=== PATIENT | female | born 1945 | race Caucasian/White ===

== ENCOUNTER 2017-04-06 00:51 | Emergency (ER) | payer MEDICARE, MEDICAID ==
[~2017-04-06] VITALS: Ht 170.2 cm; Wt 73.8 kg
[2017-04-06 00:52] VITALS: BP 158/99
[2017-04-06] MEDS ORDERED: DEXAMETHASONE 4 MG TABLET ONE (01:27)
[2017-04-06] MEDS ORDERED: DEXAMETHASONE 4 MG TABLET PO ONE (01:30)
== END 2017-04-06 01:45 | disposition home or self-care (01) ==
LOC: ED 01:40
DX: J04.0 Acute laryngitis (principal); Z87.891 Personal history of nicotine dependence; Z88.0 Allergy status to penicillin; Z90.49 Acquired absence of other specified parts of digestive tract
CPT/HCPCS: 99282

== ENCOUNTER 2017-04-08 09:56 | Emergency (ER) | payer MEDICARE, MEDICAID ==
[~2017-04-08] VITALS: Ht 167.6 cm; Wt 73.8 kg
[2017-04-08] MEDS ORDERED: MECLIZINE CHEWABLE 25 MG TAB PO ONE (10:30)
[2017-04-08] MEDS ORDERED: MECLIZINE CHEWABLE 25 MG TAB ONE (10:32)
[2017-04-08 12:22] VITALS: BP 117/82
== END 2017-04-08 12:23 | disposition home or self-care (01) ==
LOC: ED 10:09
DX: R42 Dizziness and giddiness (principal); Z90.49 Acquired absence of other specified parts of digestive tract; Z87.891 Personal history of nicotine dependence
CPT/HCPCS: 93005; 99283

== ENCOUNTER 2017-05-19 22:06 | Emergency (ER) | payer MEDICARE, MEDICAID ==
[~2017-05-19] VITALS: Ht 152.4 cm; Wt 72.5 kg
[2017-05-19 22:15] VITALS: BP 151/100
== END 2017-05-20 00:12 | disposition home or self-care (01) ==
LOC: ED 05-20 00:05
DX: J02.8 Acute pharyngitis due to other specified organisms (principal); B96.89 Other specified bacterial agents as the cause of diseases classified elsewhere; J20.8 Acute bronchitis due to other specified organisms; Z87.891 Personal history of nicotine dependence
CPT/HCPCS: 99283

== ENCOUNTER 2018-07-05 11:32 | Emergency (ER) | payer MEDICARE, MEDICAID, OTHER ==
[~2018-07-05] VITALS: Ht 165.1 cm; Wt 68.6 kg
[2018-07-05 11:36] VITALS: BP 132/85
--- NOTE | 2018-07-05 13:27 | NUR ---
Patient/Caregiver given discharge instructions and they have confirmed that they understand the instructions. Patient ambulatory with steady gait.
== END 2018-07-05 13:29 | disposition home or self-care (01) ==
LOC: ED 13:20
DX: S06.0X0A Concussion without loss of consciousness, initial encounter (principal); S16.1XXA Strain of muscle, fascia and tendon at neck level, initial encounter; S29.012A Strain of muscle and tendon of back wall of thorax, initial encounter; V89.2XXA Person injured in unspecified motor-vehicle accident, traffic, initial encounter; Y93.89 Activity, other specified; Y92.410 Unspecified street and highway as the place of occurrence of the external cause; Y99.8 Other external cause status
CPT/HCPCS: 70450; 72125; 72128; 99284

== ENCOUNTER 2018-12-01 11:44 | Emergency (ER) | payer MEDICARE, MEDICAID ==
[~2018-12-01] VITALS: Ht 160 cm; Wt 68.0 kg
[2018-12-01 11:59] VITALS: BP 157/81
--- NOTE | 2018-12-01 12:28 | NUR ---
PT AMBULATED TO ROOM FROM LOBBY WITH STEADY GAIT
[2018-12-01] MEDS ORDERED: DIPH,PERTUSS(ACELL),TET VAC/PF 0.5 ML IM-VACC ONE (12:30)
--- NOTE | 2018-12-01 12:34 | NUR ---
PT IN CT
--- NOTE | 2018-12-01 12:46 | NUR ---
PT RETURNED FROM CT
== END 2018-12-01 13:57 | disposition home or self-care (01) ==
LOC: ED 12:58
DX: S62.254A Nondisplaced fracture of neck of first metacarpal bone, right hand, initial encounter for closed fracture (principal); S00.83XA Contusion of other part of head, initial encounter; S00.31XA Abrasion of nose, initial encounter; R51 Headache; W18.30XA Fall on same level, unspecified, initial encounter; Y93.89 Activity, other specified; Y92.009 Unspecified place in unspecified non-institutional (private) residence as the place of occurrence of the external cause; Y99.8 Other external cause status
CPT/HCPCS: 29125; 70450; 99284

== ENCOUNTER 2019-10-08 12:40 | Emergency (ER) | payer MEDICARE, MEDICAID ==
[~2019-10-08] VITALS: Ht 162.6 cm; Wt 63.2 kg
[2019-10-08 12:41] VITALS: BP 123/90
[2019-10-08] MEDS ORDERED: FAMOTIDINE 20 MG TABLET ONE (13:44)
--- NOTE | 2019-10-08 13:55 | NUR ---
PT MEDICATED PER EMAR.
[2019-10-08] MEDS ORDERED: FAMOTIDINE 20 MG TABLET PO ONE (14:00)
== END 2019-10-08 14:26 | disposition home or self-care (01) ==
LOC: ED 14:10
DX: L50.9 Urticaria, unspecified (principal); Z90.49 Acquired absence of other specified parts of digestive tract; Z87.891 Personal history of nicotine dependence
CPT/HCPCS: 99283; J7512

== ENCOUNTER 2019-10-15 10:46 | Emergency (ER) | payer MEDICARE, MEDICAID ==
[~2019-10-15] VITALS: Ht 162.6 cm; Wt 63.4 kg
[2019-10-15 10:48] VITALS: BP 129/80
--- NOTE | 2019-10-15 11:29 | NUR ---
THIS IS A 74 YO FEMALE WHO PRESENTS TO THE ER C/O REDNESS/ITCHING TO BACK OF NECK AND HEAD AND FEELING "THINGS INSIDE THERE YOU KNOW?". NITS NOTED TO HAIRLINE. PT HAS HEAD & SHOULDERS SHAMPOO ON BED. PT AO X 4, BUT DIFFICULT TO KEEP ON TRACK. PT PACING IN ROOM W/O DIFFICULTY.
[2019-10-15] MEDS ORDERED: hydrOXyzine 50MG TABLET ONE (11:37)
[2019-10-15] MEDS ORDERED: hydrOXyzine 50MG TABLET PO ONE (12:00)
--- NOTE | 2019-10-15 12:08 | NUR ---
PT VERBALIZED UNDERSTANDING OF DC INSTRUCTIONS AND NEED TO FILL RX AT PHARMACY AND HOW TO CLEAN HER CLOTHING AND BEDDING.
== END 2019-10-15 12:16 | disposition home or self-care (01) ==
LOC: ED 11:40
DX: L24.89 Irritant contact dermatitis due to other agents (principal); B85.0 Pediculosis due to Pediculus humanus capitis
CPT/HCPCS: 99282; 99283

== ENCOUNTER 2019-10-16 10:46 | Emergency (ER) | payer MEDICARE, MEDICAID ==
[~2019-10-16] VITALS: Ht 165.1 cm; Wt 63.6 kg
[2019-10-16 10:48] VITALS: BP 128/82
== END 2019-10-16 11:17 | disposition home or self-care (01) ==
LOC: ED 11:07
DX: L24.9 Irritant contact dermatitis, unspecified cause (principal); Z72.9 Problem related to lifestyle, unspecified
CPT/HCPCS: 99281

== ENCOUNTER 2019-10-23 12:25 | Emergency (ER) | payer MEDICARE, MEDICAID ==
[~2019-10-23] VITALS: Ht 167.6 cm; Wt 50.9 kg
[2019-10-23 12:28] VITALS: BP 123/81
== END 2019-10-23 13:59 | disposition home or self-care (01) ==
LOC: ED 13:51
DX: B85.0 Pediculosis due to Pediculus humanus capitis (principal); B85.1 Pediculosis due to Pediculus humanus corporis; Z90.49 Acquired absence of other specified parts of digestive tract; Z87.891 Personal history of nicotine dependence
CPT/HCPCS: 99283

== ENCOUNTER 2019-10-30 15:15 | Emergency (ER) | payer MEDICARE, MEDICAID ==
[~2019-10-30] VITALS: Ht 162.6 cm; Wt 65.0 kg
--- NOTE | 2019-10-30 15:55 | NUR ---
MOBILE HOME LOT UTILITY WORKER: TECH ATTEMPTING TO OBTAIN V/S. PT NOT IN LOBBY.
== END 2019-10-30 15:57 | disposition left against medical advice (07) ==
LOC: ED 15:50
DX: L50.1 Idiopathic urticaria (principal)
CPT/HCPCS: 99283

== ENCOUNTER 2019-11-01 06:54 | Emergency (ER) | payer MEDICARE, MEDICAID ==
[~2019-11-01] VITALS: Ht 162.6 cm; Wt 66.5 kg
[2019-11-01 07:02] VITALS: BP 106/65
--- NOTE | 2019-11-01 07:46 | NUR ---
Patient/Caregiver given discharge instructions and they have confirmed that they understand the instructions. Patient ambulatory with steady gait. PT LEFT WITH ALL PERSONAL BELONGINGS.
--- NOTE | 2019-11-01 07:48 | NUR ---
TECHNICIAN TRAINEE: PT REFUSED TO TAKE D/C PAPERWORK AND RX. WILL KEEP AT CHARGE DESK.
== END 2019-11-01 07:47 | disposition home or self-care (01) ==
LOC: ED 07:05
DX: R21 Rash and other nonspecific skin eruption (principal); Z90.49 Acquired absence of other specified parts of digestive tract
CPT/HCPCS: 99283

== ENCOUNTER 2019-11-08 10:45 | Emergency (ER) | payer MEDICARE, MEDICAID ==
[~2019-11-08] VITALS: Ht 167.6 cm; Wt 64.0 kg
[2019-11-08 10:48] VITALS: BP 113/62
--- NOTE | 2019-11-08 11:34 | NUR ---
BAG INSPECTOR: PT TO ROOM FROM [facility]
--- NOTE | 2019-11-08 11:35 | NUR ---
First contact with pt. Dr. Orona at bedside to evaluate pt. Pt with rambling speech, c/o redness on posterior scalp. Pt very restless, pacing around room but cooperative with staff instruction. Pt agreeable to waiting in room for labwork, denies other needs.
[2019-11-08 12:08] LABS: BASOPHILS # (AUTO) 0.03 x10^3/uL (0-0.1); BASOPHILS % (AUTO) 1 % (0-1); EOSINOPHILS % (AUTO) 8 % (1-7); LYMPHOCYTES # (AUTO) 1.14 x10^3/uL (1-3.4); LYMPHOCYTES % (AUTO) 23 % (22-44); MD NO; MEAN CORPUSCULAR HEMOGLOBIN 31.3 pg (27.0-34.8); MEAN CORPUSCULAR HGB CONC 33.2 g/dL (32.4-35.8); MEAN CORPUSCULAR VOLUME 94.3 fL (80-100); MEAN PLATELET VOLUME 6.9 fL (7.4-10.4); MONOCYTES # (AUTO) 0.61 x10^3/uL (0.2-0.8); MONOCYTES % (AUTO) 12 % (2-9); NEUTROPHILS # (AUTO) 2.85 x10^3/uL (1.8-6.8); NEUTROPHILS % (AUTO) 57 % (42-75); PLATELET COUNT 274 x10^3/uL (130-400); RED BLOOD COUNT 4.79 x10^6/uL (3.82-5.3)
[2019-11-08 12:12] LABS: ALBUMIN 3.6 g/dL (3.4-5.0); ANION GAP 6 mmol/L (5-15); CALCIUM 8.5 mg/dL (8.5-10.1); CHLORIDE 107 mmol/L (98-107); CREATININE 0.89 mg/dL (0.55-1.02)
== END 2019-11-08 13:24 | disposition home or self-care (01) ==
LOC: ED 12:21
DX: L21.9 Seborrheic dermatitis, unspecified (principal); R00.0 Tachycardia, unspecified
CPT/HCPCS: 36415; 80048; 82040; 85025; 93005; 99284

== ENCOUNTER 2019-11-11 02:39 | Emergency (ER) | payer MEDICARE, MEDICAID ==
[~2019-11-11] VITALS: Ht 165.1 cm; Wt 64.0 kg
[2019-11-11 02:45] VITALS: BP 122/82
--- NOTE | 2019-11-11 03:00 | NUR ---
PT RESTING IN GURNEY, NAD, VSS, CMS INTACT. WCTM.
== END 2019-11-11 06:39 | disposition home or self-care (01) ==
LOC: ED 06:35
DX: L73.9 Follicular disorder, unspecified (principal); B86 Scabies; R21 Rash and other nonspecific skin eruption; Z87.891 Personal history of nicotine dependence; Z90.49 Acquired absence of other specified parts of digestive tract
CPT/HCPCS: 99281

== ENCOUNTER 2019-12-12 21:00 | Emergency (ER) | payer MEDICARE, MEDICAID ==
[~2019-12-12] VITALS: Ht 165.1 cm; Wt 62.9 kg
[2019-12-12 21:04] VITALS: BP 114/60
[2019-12-12] MEDS ORDERED: ACETAMINOPHEN 500 MG TABLET ONE (21:23)
--- NOTE | 2019-12-12 21:29 | NUR ---
PATIENT SENT TO CT SCAN, SHE TOLERATED PO TYLENOL.
[2019-12-12] MEDS ORDERED: ACETAMINOPHEN 500 MG TABLET PO ONE (21:30)
--- NOTE | 2019-12-12 22:49 | NUR ---
D/C PAPERWORK GIVEN TO PATIENT, TAXI VOUCHER SUPPLIED TO PATIENT, PATIENT VERBALIZED UNDERSTANDING. SHE STEADILY AMBULATED OUT AMOR
== END 2019-12-12 22:51 | disposition home or self-care (01) ==
LOC: ED 21:36
DX: S06.0X0A Concussion without loss of consciousness, initial encounter (principal); S79.911A Unspecified injury of right hip, initial encounter; Z90.49 Acquired absence of other specified parts of digestive tract; Z87.891 Personal history of nicotine dependence; W01.0XXA Fall on same level from slipping, tripping and stumbling without subsequent striking against object, initial encounter; Y93.89 Activity, other specified; Y92.009 Unspecified place in unspecified non-institutional (private) residence as the place of occurrence of the external cause; Y99.8 Other external cause status
CPT/HCPCS: 70450; 99284

== ENCOUNTER 2019-12-14 10:47 | Emergency (ER) | payer MEDICARE, MEDICAID ==
[~2019-12-14] VITALS: Ht 170.2 cm; Wt 63.0 kg
--- NOTE | 2019-12-14 11:05 | NUR ---
MANAGER LAW: PT UNCOOPERATIVE W/ VISUAL ACUITY ASSESSMENT.
--- NOTE | 2019-12-14 11:45 | NUR ---
SECOND ATTEMPT AT [facility], PT STATED "THIS IS STUPID," AND RELUCTANT TO FINISH THE ASSESSMENT.
[2019-12-14 12:38] VITALS: BP 124/74
== END 2019-12-14 12:40 | disposition home or self-care (01) ==
LOC: ED 12:07
DX: S00.83XA Contusion of other part of head, initial encounter (principal); S00.11XA Contusion of right eyelid and periocular area, initial encounter; Z87.891 Personal history of nicotine dependence; W18.30XA Fall on same level, unspecified, initial encounter; Y93.89 Activity, other specified; Y92.410 Unspecified street and highway as the place of occurrence of the external cause; Y99.8 Other external cause status
CPT/HCPCS: 99282

== ENCOUNTER 2019-12-15 11:09 | Emergency (ER) | payer MEDICARE, MEDICAID ==
[~2019-12-15] VITALS: Ht 162.6 cm; Wt 62.9 kg
[2019-12-15 11:12] VITALS: BP 104/54
--- NOTE | 2019-12-15 12:29 | NUR ---
Patient/Caregiver given discharge instructions and they have confirmed that they understand the instructions. Patient ambulatory with steady gait.
== END 2019-12-15 12:30 | disposition home or self-care (01) ==
LOC: ED 12:18
DX: S00.83XA Contusion of other part of head, initial encounter (principal); H61.23 Impacted cerumen, bilateral; Z87.891 Personal history of nicotine dependence; W01.0XXA Fall on same level from slipping, tripping and stumbling without subsequent striking against object, initial encounter; Y93.89 Activity, other specified; Y92.410 Unspecified street and highway as the place of occurrence of the external cause; Y99.8 Other external cause status
CPT/HCPCS: 99281

== ENCOUNTER 2019-12-24 09:00 | Emergency (ER) | payer MEDICARE, MEDICAID ==
[~2019-12-24] VITALS: Ht 167.6 cm; Wt 64.4 kg
[2019-12-24 09:04] VITALS: BP 111/73
--- NOTE | 2019-12-24 11:16 | NUR ---
METAL FABRICATING INSPECTOR: CALLED FOR ROOM, NO ANSWER
--- NOTE | 2019-12-24 11:28 | NUR ---
SEARCH MARKETING SPECIALIST: CALLED FOR ROOM, NO ANSWER
--- NOTE | 2019-12-24 11:36 | NUR ---
REAL ESTATE PARALEGAL: CALLED FOR ROOM, NO ANSWER
== END 2019-12-24 11:37 | disposition left against medical advice (07) ==
LOC: ED 11:26
DX: R51 Headache (principal); Z53.21 Procedure and treatment not carried out due to patient leaving prior to being seen by health care provider

== ENCOUNTER 2020-01-08 09:19 | Emergency (ER) | payer MEDICARE, MEDICAID ==
[~2020-01-08] VITALS: Ht 165.1 cm; Wt 64.2 kg
[2020-01-08 09:42] VITALS: BP 101/65
--- NOTE | 2020-01-08 10:12 | NUR ---
pt moved from lobby to 25
== END 2020-01-08 10:50 | disposition home or self-care (01) ==
LOC: ED 10:26
DX: B86 Scabies (principal); R51 Headache
CPT/HCPCS: 99283